=== PATIENT | male | born 1965 | race Caucasian/White ===

== ENCOUNTER 2019-08-20 09:18 | Emergency (ER) | payer BC, SELFPAY ==
[2019-08-20 10:23] LABS: ALT (SGPT) 19 U/L (8-55); AST (SGOT) 16 U/L (5-34); Albumin 4.4 g/dL (3.5-5.0); Alkaline Phosphatase 55 U/L (40-110); Anion Gap 12 mmol/L (10-20); BUN (Urea Nitrogen) 12 mg/dL (8.4-25.7); Bilirubin, Total 0.7 mg/dL (0.2-1.2); CK (CPK) 49 U/L (30-200); Calc. Creatinine Clearance 0 mL/min (70-130); Carbon Dioxide 24 mmol/L (22-29); Chloride 109 mmol/L (98-107); Estimated GFR-MDRD 73; Globulin 1.7 g/dL (2.4-3.5); Glucose 104 mg/dL (70-105); Lipase 18 U/L (8-78); Potassium 3.9 mmol/L (3.5-5.1); Protein, Total 6.1 g/dL (6.0-8.3); Sodium 141 mmol/L (136-145)
[2019-08-20 11:01] LABS: Band 1 % (5-11); Hemoglobin 15.1 g/dL (14.0-18.0); Lymphocytes 24 % (21-51); MDiff Complete? YES; Mean Corpuscular HGB CONC 34.2 g/dL (32.0-36.0); Mean Corpuscular Hemoglobin 31.1 pg (27.0-31.0); Mean Corpuscular Volume 90.8 fL (78.0-98.0); Mean Platelet Volume 7.1 fL (7.4-10.4); Monocytes 1 % (0-10); Neutrophil 34 % (42-75); Platelet Count 89 thou/uL (130-400); Platelet Morphology Comment Appears Decreased; RBC Distribution Width 11.5 % (11.5-14.5); RBC Morphology Normal; Reactive Lymphocytes 40 % (0-10); Red Blood Cell (RBC) Count 4.85 mill/uL (4.70-6.10); Reflex for Review?? YES; White Blood Cell (WBC) Count 13.3 thou/uL (4.8-10.8)
[2019-08-20 12:32] LABS: Troponin I Less than 0.010 ng/mL (< 0.028)
--- NOTE | 2019-08-20 12:55 | RAD ---
EXAM: CHEST ONE VIEW: History: Chest pain, left arm pain. FINDINGS: Heart size is normal. The lungs are clear. IMPRESSION: No acute intrathoracic disease. POS: RRE
== END 2019-08-20 13:10 | disposition home or self-care (01) ==
LOC: ERS 09:18
DX: R07.89 Other chest pain (principal); Z85.6 Personal history of leukemia
CPT/HCPCS: 36415; 71045; 80053; 82550; 83690; 84484; 85025; 85060; 85379; 93005; 94760